=== PATIENT | female | born 1970 | race Two or more races ===

== ENCOUNTER → 2017-08-31 | Outpatient (CLI) | payer OTHER | END | disposition home or self-care (01) | LOC: RAD 18:07 | DX: M15.0 Primary generalized (osteo)arthritis (principal) ==

== ENCOUNTER 2018-07-28 14:55 | Outpatient (CLI) | payer OTHER | END 2018-07-28 14:58 | disposition home or self-care (01) | LOC: MAMO-SONO 14:55 | DX: E03.8 Other specified hypothyroidism (principal); Z12.39 Encounter for other screening for malignant neoplasm of breast; Z12.31 Encounter for screening mammogram for malignant neoplasm of breast ==

== ENCOUNTER 2018-07-31 14:32 | Emergency (ER) | payer OTHER ==
[~2018-07-31] VITALS: Ht 162.6 cm; Wt 61.2 kg
== END 2018-07-31 20:59 | disposition home or self-care (01) ==
LOC: ER 14:32
DX: J09.X2 Influenza due to identified novel influenza A virus with other respiratory manifestations (principal); R10.84 Generalized abdominal pain; E86.0 Dehydration; R11.10 Vomiting, unspecified

== ENCOUNTER 2018-08-09 09:03 | Outpatient (CLI) | payer OTHER | END 2018-08-09 09:07 | disposition home or self-care (01) | LOC: SONOGRAMA 09:03 | DX: N63.20 Unspecified lump in the left breast, unspecified quadrant (principal) ==

== ENCOUNTER 2021-04-16 18:16 | Emergency (ER) | payer OTHER ==
[~2021-04-16] VITALS: Ht 167.6 cm; Wt 69.9 kg
[2021-04-16] MEDS ORDERED: PYRIDIUM100 M1 PO (21:34)
[2021-04-16] MEDS ORDERED: TAMS0.4C PO (21:34)
[2021-04-21] MEDS ORDERED: MEDROLPACK PO (23:28)
== END 2021-04-16 21:38 | disposition home or self-care (01) ==
LOC: ER 18:16
DX: N20.0 Calculus of kidney (principal); N39.0 Urinary tract infection, site not specified

== ENCOUNTER → 2021-04-21 | Emergency (ER) | payer OTHER ==
[~2021-04-21] VITALS: Ht 162.6 cm; Wt 65.3 kg
[~2021-04-21] MED LIST: MEDROLPACK PO; PYRIDIUM100 M1 PO; TAMS0.4C PO
== END | disposition home or self-care (01) ==
LOC: ER 22:04
DX: R60.0 Localized edema (principal); T50.995A Adverse effect of other drugs, medicaments and biological substances, initial encounter

== ENCOUNTER 2021-08-19 12:57 | Outpatient (CLI) | payer OTHER | END 2021-08-19 13:12 | disposition home or self-care (01) | LOC: MAMO-SONO 12:57 | DX: R92.0 Mammographic microcalcification found on diagnostic imaging of breast (principal); N64.0 Fissure and fistula of nipple; Z12.31 Encounter for screening mammogram for malignant neoplasm of breast ==

== ENCOUNTER 2022-02-06 17:20 | Emergency (ER) | payer OTHER ==
[~2022-02-06] VITALS: Ht 160 cm; Wt 64.4 kg
[2022-02-06] MEDS ORDERED: PEPCID AC20 MG PO (22:38)
== END 2022-02-06 22:48 | disposition home or self-care (01) ==
LOC: ER 17:20
DX: K29.70 Gastritis, unspecified, without bleeding (principal); Z88.2 Allergy status to sulfonamides; Z20.822 Contact with and (suspected) exposure to COVID-19

== ENCOUNTER 2023-01-09 23:12 | Emergency (ER) | payer OTHER ==
[~2023-01-09] VITALS: Ht 160 cm; Wt 53.1 kg
[~2023-01-09 23:12] MED LIST changes: +PEPCID AC20 MG PO
[2023-01-09] MEDS ORDERED: NEURONTIN300 MG PO (23:32)
== END 2023-01-10 01:27 | disposition home or self-care (01) ==
LOC: ER 23:12
DX: J10.1 Influenza due to other identified influenza virus with other respiratory manifestations (principal); R53.81 Other malaise; Z88.2 Allergy status to sulfonamides

== ENCOUNTER 2023-04-19 21:13 | Emergency (ER) | payer OTHER ==
[~2023-04-19] VITALS: Ht 165.1 cm; Wt 70.3 kg
[~2023-04-19 21:13] MED LIST changes: +NEURONTIN300 MG PO
== END 2023-04-19 23:27 | disposition home or self-care (01) ==
LOC: ER 21:13
PROVIDERS: General Practice
DX: K52.9 Noninfective gastroenteritis and colitis, unspecified (principal)